=== PATIENT | female | born 1995 | race Caucasian/White ===

== ENCOUNTER → 2018-09-16 | Outpatient (CLI) | payer BC ==
--- NOTE | 2018-09-16 08:29 | USB ---
Reason for exam: clinical finding. History: Family history of breast cancer in aunt. Taking hormonal contraceptives beginning at age 16. Indicated problem(s): palpable abnormality in the right breast. Physical Findings: Nurse Summary: 1cm nodule in the right breast at 6 o'clock and 3 o'clock (nurse dw). US Breast Limited RT Right limited breast ultrasound including focal area of concern, retroareolar and axilla demonstrates no cystic or solid lesion seen. Scanned from 2-7 o'clock plus axilla. Patient palpated abnormality at 3 o'clock and nurse palpated abnormality at 6 o'clock. Neither have an ultrasound correlate. These results were verbally communicated with the patient and result sheet given to the patient on 09/16/18. ASSESSMENT: Negative, BI-RAD 1 RECOMMENDATION: Routine screening mammogram of both breasts at age 39. (unless clinical indication to start sooner) Manage on a clinical basis with regard to any suspicious palpable areas.
== END | disposition home or self-care (01) ==
LOC: RADUSWWP 07:28
PROVIDERS: ATTEND Family Medicine
DX: N63.14 Unspecified lump in the right breast, lower inner quadrant (principal)